=== PATIENT | female | born 1995 | race Caucasian/White ===

== ENCOUNTER 2017-02-20 22:27 | Emergency (ER) | payer BC ==
[~2017-02-20] VITALS: Ht 154.9 cm; Wt 56.5 kg
[2017-02-20 22:38] VITALS: TEMP 36.9; Ht 154.9 cm; Wt 56.5 kg
--- NOTE | 2017-02-20 23:54 | EMERGENCY ROOM VISIT NOTE ---
ED Visit Note First contact with patient: 23:39 CHIEF COMPLAINT: Left thumb laceration HISTORY OF PRESENT ILLNESS: This 21-year-old female patient presents to the emergency department ambulatory after cutting the left thumb on an [employer] knife while working on a school project. The bleeding stopped shortly after the injury and there is no weakness or numbness of the area. Tetanus shot is up-to- date. Full range of motion of the thumb. The patient denies any pain. REVIEW OF SYSTEMS: A 6 system review of systems was completed with positives and pertinent negatives listed in the HPI. ALLERGIES: No known drug allergies MEDICATIONS: No chronic medications PMH: No significant past medical history. SOCIAL HISTORY: The patient is a [employer] student and lives with roommates. Nonsmoker, denies alcohol use. PHYSICAL EXAM: Vital Signs: Reviewed Nurse's notes, vital signs stable. GENERAL : This is a 21-year-old female, in no acute distress, well-developed, well- nourished. SKIN: There is a 1 cm long laceration through the distal aspect of the left thumbnail. The laceration is not gaping and the nail is in normal anatomical alignment. There is no foreign material in the wound and it looks clean. There is no active bleeding. Extension and flexion of the finger is full and strong. Sensation to pain and light touch is intact. EMERGENCY DEPARTMENT COURSE: I examined the patient. Verbal consent was obtained to perform the procedure. The laceration was cleaned with betadine and sterile saline and there was no bleeding. The edges of the laceration were approximated and secured with 3 layers of Dermabond glue with good wound approximation. The patient tolerated the procedure well. The patient was discharged home in stable condition. Blood Pressure Screening: Patient was found to have a slightly elevated blood pressure due to circumstances. I do not believe that the patient requires hypertension monitoring. Medication reconciliation: I attest that I have personally reviewed the patient 's current medication list. DIAGNOSIS: Left thumb laceration Allergies Coded Allergies: No Known Allergies (Unverified , 02/20/17) Vital Signs Date Time Temp Pulse Resp B/P (MAP) Pulse Ox O2 Delivery O2 Flow Rate FiO2 02/20/17 22:38 36.9 88 16 145/94 99 Room Air Departure Information Impression Primary Impression: Laceration of left thumb Dispostion Home / Self-Care Condition GOOD Referrals Blair Jean Baptiste D.O. (PCP) Patient Instructions ED Laceration Ext Skin Glue, [facility] Additional Instructions Allow the DermaBond to fall off on its own over the next few days. You may apply a bandaid overtop, but do not use any ointments or lotions. For pain control, you can use the following [id number] medicines (if >12 yo): - Regular strength (325mg/tab) Tylenol (acetaminophen) 2 tabs every 4-6 hours as needed. Do not exceed 12 tablets in a 24 hour period. Avoid taking more than 4 grams (4000 mg) of Tylenol per day. This includes any other sources of acetaminophen you may take on a regular basis. - Regular strength (200 mg/tab) Advil (ibuprofen) 1-2 tabs every 4-6 hours as needed. Do not exceed a dose of 3200 mg per day. Problem Qualifiers Primary Impression: Laceration of left thumb Encounter type: initial encounter Damage to nail status: with damage Foreign body presence: without foreign body Qualified Codes: S61.112A - Laceration without foreign body of left thumb with damage to nail, initial encounter
[2017-02-21 00:06] VITALS: BP 116/67; PULSE 77; O2SAT 97
== END 2017-02-21 00:06 | disposition home or self-care (01) ==
LOC: C.EDB 22:29 → C.EDC 02-21 00:06
DX: S61.112A Laceration without foreign body of left thumb with damage to nail, initial encounter (principal); W26.0XXA Contact with knife, initial encounter; Y93.89 Activity, other specified; Y99.8 Other external cause status